=== PATIENT | male | born 1950 | race Caucasian/White ===

== ENCOUNTER 2017-04-07 02:19 | Inpatient (IN) | payer BC ==
[~2017-04-07] VITALS: Ht 175.3 cm; Wt 110.7 kg
[2017-04-07] VITALS (7 sets, daily range): BP systolic 96–126; BP diastolic 64–86; PULSE 88–123; TEMP 36.8–37.5; O2SAT 91–95; Ht 175.3 cm; Wt 110.7 kg
[~2017-04-07 02:19] MED LIST: AMOX500C3 PO; AMX500 PO; ASPEC325 PO; HYDR-713 PO; METH10TA6 PO; METO100T44 PO; MULT-506 PO
[2017-04-07] MEDS ORDERED: METOPROLOL TARTRATE 1 MG/ML VIAL IV STA (02:32)
[2017-04-07] MEDS ORDERED: ASPIRIN 324 MG CHEW PO STA (02:32)
[2017-04-07] MEDS ORDERED: METOPROLOL TARTRATE 1 MG/ML VIAL ONE (02:33)
[2017-04-07 02:44] LABS: BASO % 0.2 %; BASO ABS # 0.03 K/uL (0-0.2); EOS % 0.3 %; EOS ABS # 0.04 K/uL (0-0.5); HEMOGLOBIN 15.3 g/dL (14.0-18.0); IG# 0.05 K/uL (0.00-0.02); LYMPH % 9.4 %; LYMPH ABS # 1.34 K/uL (1.2-3.4); MEAN CELL VOLUME 87.8 fL (80-100); MEAN CORPUSCULAR HEMOGLOBIN 29.2 pg (25-34); MEAN CORPUSCULAR HGB CONC 33.3 g/dl (32-36); MEAN PLATELET VOLUME 11.1 fL (7.4-10.4); MONO % 8.8 %; MONO ABS # 1.26 K/uL (0.11-0.59); NEUT % 80.9 %; NEUT ABS # 11.52 K/uL (1.4-6.5); PLATELET COUNT 105 K/uL (130-400); RED CELL DISTRIBUTION WIDTH CV 12.6 % (11.5-14.5); RED CELL DISTRIBUTION WIDTH SD 40.3 fL (36.4-46.3); WHITE BLOOD COUNT 14.24 K/uL (4.8-10.8)
[2017-04-07 02:57] LABS: INR 1.1 (0.9-1.1); PTT PATIENT 28.5 SECONDS (21.0-31.0)
[2017-04-07 03:27] LABS: ALBUMIN 3.5 gm/dl (3.4-5.0); ALKALINE PHOSPHATASE 136 U/L (45-117); ALT/SGPT 25 U/L (12-78); AST/SGOT 17 U/L (15-37); BLOOD UREA NITROGEN 23 mg/dl (7-18); CALCIUM 8.7 mg/dl (8.5-10.1); CARBON DIOXIDE 24 mmol/L (21-32); CKMB < 0.5 ng/ml (0.5-3.6); CREATININE 1.14 mg/dl (0.60-1.40); GLUCOSE 127 mg/dl (70-99); POTASSIUM 4.6 mmol/L (3.5-5.1); SODIUM 135 mmol/L (136-145); TOTAL PROTEIN 7.9 gm/dl (6.4-8.2)
[2017-04-07] MEDS ORDERED: DILTIAZEM HCL 5 MG/ML 5 ML VIAL IV STA (03:39)
[2017-04-07] MEDS ORDERED: METO100T44 PO (04:01)
[2017-04-07] MEDS ORDERED: HYDR-4380 PO (04:06)
[2017-04-07] MEDS ORDERED: HEPARIN 25000 UNIT/500 ML D5W ONE (04:07)
[2017-04-07] MEDS ORDERED: HEPARIN SOD 5000 UNIT/0.5 ML CARP ONE (04:07)
--- NOTE | 2017-04-07 04:35 | History and Physical ---
History & Physical Date & Time of Service: Apr 07, 2017 at 04:19 Chief Complaint: Pain In Back Around Ribs,Having Trouble Breathing Primary Care Physician: Tom Reyes III, M.D. History of Present Illness Source: patient, family This is a 66 year old M with PMH of Atrial Fibrillation and Hyperthyroidism on methimazole who presents to the emergency room for abdominal pain and found to be in atrial fibrillation with RVR. In the ED, the initial EKG documenting heart rate of 161 bpm atrial fibrillation with RVR. Patient denies discomfort of the chest however also found to have elevated troponin of 0.147. In the ED patient received aspirin 325 mg, diltiazem 5 mg IV, and metoprolol tartrate IV. As per ED physician and patient's nurse, after these measures were taken, the blood pressure decreased (from systolic of 120s to systolic of low 100s). ED physician also ordered IV heparin to be started for anticoagulation. When see and examined by hospitalist, patient's heart rate around 115 to 120 beats per minute, still in atrial fibrillation with RVR, and blood pressure 103/ 84, saturating 94% on room air. Patient not in acute distress. Patient also had bilateral lower extremity edema for which patient reports is chronic and is not on diuretics. Patient reports that he has been having upper respiratory symptoms for about a week. He was seen at the primary care doctor's office on 04/06/17 for which he was prescribed augmentin for presumed sinusitis. Patient also reported subjective fevers at home Patient denies chest pain but has abdominal pain like muscle spasms Family History No pertinent family history Social History Smoking Status: Former Smoker Immunizations History of Influenza Vaccine: No History of Tetanus Vaccine?: Yes Tetanus Immunization Date: Jul 13, 2007 History of Pneumococcal: No History of Hepatitis B Vaccine: No Multi-Drug Resistant Organisms History of MDRO: No Allergies Coded Allergies: No Known Allergies (Verified , NKA, 04/07/17) Home Medications Scheduled Amoxicillin (Amoxil), 500 MG PO BID Methimazole (Methimazole), 10 MG PO DAILY Metoprolol Succ (Toprol Xl) (Toprol-Xl ), 100 MG PO DAILY Scheduled PRN Hydrocodone-Acetaminophen (Hydrocodone/Acetaminophen), 1 TAB PO UD PRN for Pain Review of Systems Constitutional: + fever Eyes: No discharge ENT: + nasal symptoms, No hearing loss, No unusual epistaxis, No sore throat, No trouble swallowing Respiratory: No cough, No sputum, No wheezing, No shortness of breath, No dyspnea on exertion, No dyspnea at rest Cardiovascular: + edema, + palpitations, No chest pain Abdomen: + pain, No nausea, No vomiting, No diarrhea, No constipation Musculoskeletal: + swelling Genitourinary - Male: No dysuria Neurologic: No numbness/tingling Psychiatric: No substance abuse Hematologic / Lymphatic: No abnormal bleeding/bruising Integumentary: No rash Physical Exam Vital Signs Date Time Temp Pulse Resp B/P (MAP) Pulse Ox O2 Delivery O2 Flow Rate FiO2 04/07/17 03:36 135 27 106/80 94 Room Air 04/07/17 03:31 122 26 96/54 92 Room Air 04/07/17 03:26 128 26 95/73 90 Room Air 04/07/17 03:21 122 28 100/73 94 Room Air 04/07/17 03:16 134 23 102/78 92 Room Air 04/07/17 03:14 129 23 109/76 92 Room Air 04/07/17 03:11 130 39 108/72 92 Room Air 04/07/17 03:06 133 27 103/71 94 Room Air 04/07/17 03:03 133 27 102/63 94 Room Air 04/07/17 02:59 117 28 97/77 92 Room Air 04/07/17 02:57 101/57 04/07/17 02:57 Room Air 04/07/17 02:55 107 32 97/72 93 Room Air 04/07/17 02:53 99/76 04/07/17 02:52 129 27 102/74 93 Room Air 04/07/17 02:48 103/71 04/07/17 02:46 104/68 04/07/17 02:43 139 98/78 93 Room Air 04/07/17 02:41 106/79 04/07/17 02:40 125/72 04/07/17 02:37 138 106/83 04/07/17 02:35 113/83 04/07/17 02:33 149 114/86 95 Room Air 04/07/17 02:32 130 04/07/17 02:30 169 04/07/17 02:27 94 Room Air 04/07/17 02:22 36.7 173 24 124/76 95 Room Air General Appearance: no apparent distress Head: normocephalic, atraumatic Eyes: normal inspection, EOMI, sclerae normal ENT: normal ENT inspection, hearing grossly normal, pharynx normal Neck: supple, no JVD, no carotid bruits, trachea midline Respiratory/Chest: chest non-tender, lungs clear, normal breath sounds, no respiratory distress, no accessory muscle use Cardiovascular: no JVD, + tachycardia Abdomen/GI: normal bowel sounds, non tender, soft, no organomegaly Back: normal inspection, normal range of motion Extremities/Musculoskelatal: normal capillary refill, + pedal edema, + pertinent finding (bilateral lower extremity edema) Neurologic/Psych: alert, oriented x 3 Skin: normal color, warm/dry, no rash Diagnostics Laboratory Results Results Past 24 Hours Test 04/07/17 02:32 04/07/17 04:17 Range/Units White Blood Count 14.24 4.8-10.8 K/uL Red Blood Count 5.24 4.7-6.1 M/uL Hemoglobin 15.3 14.0-18.0 g/dL Hematocrit 46.0 42-52 % Mean Corpuscular Volume 87.8 80-100 fL Mean Corpuscular Hemoglobin 29.2 25-34 pg Mean Corpuscular Hemoglobin Concent 33.3 32-36 g/dl Platelet Count 105 130-400 K/uL Mean Platelet Volume 11.1 7.4-10.4 fL Neutrophils (%) (Auto) 80.9 % Lymphocytes (%) (Auto) 9.4 % Monocytes (%) (Auto) 8.8 % Eosinophils (%) (Auto) 0.3 % Basophils (%) (Auto) 0.2 % Neutrophils # (Auto) 11.52 1.4-6.5 K/uL Lymphocytes # (Auto) 1.34 1.2-3.4 K/uL Monocytes # (Auto) 1.26 0.11-0.59 K/uL Eosinophils # (Auto) 0.04 0-0.5 K/uL Basophils # (Auto) 0.03 0-0.2 K/uL RDW Standard Deviation 40.3 36.4-46.3 fL RDW Coefficient of Variation 12.6 11.5-14.5 % Immature Granulocyte % (Auto) 0.4 % Immature Granulocyte # (Auto) 0.05 0.00-0.02 K/uL Prothrombin Time 11.4 9.0-12.0 SECONDS Prothromb Time International Ratio 1.1 0.9-1.1 Activated Partial Thromboplast Time 28.5 21.0-31.0 SECONDS Partial Thromboplastin Ratio 1.1 Sodium Level 135 136-145 mmol/L Potassium Level 4.6 3.5-5.1 mmol/L Chloride Level 104 98-107 mmol/L Carbon Dioxide Level 24 21-32 mmol/L Anion Gap 7.0 3-11 mmol/L Blood Urea Nitrogen 23 7-18 mg/dl Creatinine 1.14 0.60-1.40 mg/dl Est Creatinine Clear Calc Drug Dose 80.3 ml/min Estimated GFR () 78.3 Estimated GFR (Non- 67.6 BUN/Creatinine Ratio 19.9 10-20 Random Glucose 127 70-99 mg/dl Calcium Level 8.7 8.5-10.1 mg/dl Total Bilirubin 1.1 0.2-1 mg/dl Aspartate Amino Transf (AST/SGOT) 17 15-37 U/L Alanine Aminotransferase (ALT/SGPT) 25 12-78 U/L Alkaline Phosphatase 136 45-117 U/L Total Creatine Kinase 58 39-308 U/L Creatine Kinase MB < 0.5 0.5-3.6 ng/ml Creatine Kinase MB Ratio 0-3.0 Troponin I 0.147 0-0.045 ng/ml Pro-B-Type Natriuretic Peptide 3274 0-900 pg/ml Total Protein 7.9 6.4-8.2 gm/dl Albumin 3.5 3.4-5.0 gm/dl Globulin 4.4 2.5-4.0 gm/dl Albumin/Globulin Ratio 0.8 0.9-2 Chemistry Specimen Hemolysis Diagnostic Radiology Chest X ray reviewed. No gross consolidation EKG EKG on ED presentation was 161 bpm in atrial fibrillation RVR Impression Assessment and Plan 66 year old M in atrial fibrillation with RVR which could have been provoked by upper respiratory symptoms atrial fibrillation with RVR heart rate has decreased from 160s to 120s after ED provider gave patient IV diltiazem and IV Metoprolol Tartrate ordered metoprolol 25 mg x 1 dose to try and obtain long acting effect of beta titus at home patient has been on metoprolol succinate 100 mg daily, will hold this high dose for now to minimize hypotension patient is at home on aspirin 325 mg daily as per outpatient records, received this dose already in the ED, continue aspirin ED provider ordered IV heparin cardiology consult requested URI symptoms, possible sinusitis may have triggered afib with RVR continue augmentin PO elevated troponins may be from elevated heart rate vs NSTEMI initial troponin 0.147, trend troponins EKG did not show ST elevations abdominal pain may be referred discomfort from elevated heart rate vs NSTEMI ED provider ordered IV heparin chronic lower extremity edema not on diuresis at home obtain echocardiogram lower extremity Doppler to rule out DVT no tachypnea on exam and despite tachycardia, patient unlikely to have pulmonary embolism is to receive IV heparin for anticoagulation of atrial fibrillation Hypothyroidism continue methimazole check TSH DVT ppx: heparin IV Full Code Patient's [phone] Level of Care Telemetry Resuscitation Status FULL RESUSCITATION VTE Prophylaxis VTE Risk Assessment Done? Y/N: Yes Risk Level: Moderate
[2017-04-07] MEDS ORDERED: METOPROLOL SUCC 50MG EXT REL TAB PO STA ×2 (04:41→10:57)
[2017-04-07] MEDS ORDERED: INFLUENZA VIRUS QUAD VACCINE 0.5 ML SYR IM. ONE (06:00)
[2017-04-07] MEDS ORDERED: INFLUENZA ADMINISTRATION CHARGE ONE (06:00)
--- NOTE | 2017-04-07 07:41 | DIAGNOSTIC IMAGING REPORT ---
CHEST ONE VIEW PORTABLE HISTORY: Atypical chest pain. COMPARISON: Chest 10/13/2008. FINDINGS: There are low lung volumes. The heart is mildly enlarged. Trace left pleural effusion. No evidence for pulmonary edema. Old, healed bilateral rib fractures. No pneumothorax. Bibasilar linear densities. The upper lung zones are clear. IMPRESSION: 1. Trace left pleural effusion. 2. Mild cardiomegaly. 3. Bibasilar linear densities. This is nonspecific but may represent atelectasis or pneumonia. Electronically signed by: Lion Jackson M.D. 04/07/2017 7:40 AM Dictated Date/Time: 04/07/2017 7:39 AM
[2017-04-07] MEDS ORDERED: PERFLUTREN LIPID MICROSPHERE (DEFINITY) IV ONE (08:03)
[2017-04-07] MEDS ORDERED: METHIMAZOLE 5 MG TAB PO SCH ×2 (09:00)
[2017-04-07] MEDS ORDERED: AMOXICILLIN 500 MG CAP PO SCH (09:00)
--- NOTE | 2017-04-07 09:00 | DIAGNOSTIC IMAGING REPORT ---
BILATERAL LOWER EXTREMITY VENOUS DOPPLER HISTORY: Difficulty breathing. Leg pain. COMPARISON STUDY: None. FINDINGS: Near occlusive DVT seen within the right superficial femoral, popliteal, and posterior tibial veins. There is also a thrombosed right greater saphenous vein. There is normal compressibility, flow, and augmentation within the left lower extremity deep venous system. IMPRESSION: 1. Right lower extremity DVT as described above including a thrombosed greater saphenous vein. 2. No DVT within the left lower extremity. Electronically signed by: Lion Jackson M.D. 04/07/2017 8:59 AM Dictated Date/Time: 04/07/2017 8:53 AM
[2017-04-07] MEDS: METOPROLOL TARTRATE 1 MG/ML VIAL IV PRN ×2 (09:10→10:20)
--- NOTE | 2017-04-07 09:23 | EMERGENCY ROOM VISIT NOTE ---
History Report prepared by Javed: Lilian Sheffield Under the Supervision of: Dr. Adeola Prater D.O. First contact with patient: 02:27 Chief Complaint: CHEST PAIN Stated Complaint: PAIN IN BACK AROUND RIBS,HAVING TROUBLE BREATHING History of Present Illness The patient is a 66 year old male who presents to the Emergency Room with complaints of worsening chest pain starting a few days ago. The patient states that he thought when it originally started, it was from coughing so much from the cold he has. He states that it got worse yesterday and this morning he could no longer take it. He states that he has not been sleeping well. He reports that he has had this feeling before when he was in atrial fibrillation. The patient notes he recently has been taking 2 Aspirin daily. The patient denies abdominal pain. The patient notes that he is currently taking Amoxicillin for a sinus infection that was prescribed by his PCP yesterday. Source of History: patient Onset: a few days ago Position: chest Quality: other (previosu a fib episodes) Timing: worsening Associated Symptoms: + cough, No abdominal pain Review of Systems See HPI for pertinent positives & negatives. A total of 10 systems reviewed and were otherwise negative. Past Medical & Surgical Medical Problems: (1) Atrial fibrillation with RVR (2) Elevated troponin (3) Paroxysmal atrial fibrillation Family History No pertinent family history Social History Alcohol Use: none Marital Status: Housing Status: lives with significant other Current/Historical Medications Scheduled Amoxicillin (Amoxil), 500 MG PO BID Methimazole (Methimazole), 10 MG PO DAILY Metoprolol Succ (Toprol Xl) (Toprol-Xl ), 100 MG PO DAILY Scheduled PRN Hydrocodone-Acetaminophen (Hydrocodone/Acetaminophen), 1 TAB PO UD PRN for Pain Allergies Coded Allergies: No Known Allergies (Verified , NKA, 04/07/17) Physical Exam Vital Signs Date Time Temp Pulse Resp B/P (MAP) Pulse Ox O2 Delivery O2 Flow Rate FiO2 04/07/17 04:11 129 28 100/75 94 04/07/17 04:07 102/68 04/07/17 04:06 116 30 94 04/07/17 04:01 121 29 101/80 94 04/07/17 03:56 118 26 127/76 93 04/07/17 03:51 112 23 103/84 94 04/07/17 03:46 127 24 107/78 94 04/07/17 03:41 127 26 105/75 93 04/07/17 03:36 135 27 106/80 94 Room Air 04/07/17 03:36 133 31 106/80 94 04/07/17 03:31 122 26 96/54 92 Room Air 04/07/17 03:26 128 26 95/73 90 Room Air 04/07/17 03:21 122 28 100/73 94 Room Air 04/07/17 03:16 134 23 102/78 92 Room Air 04/07/17 03:14 129 23 109/76 92 Room Air 04/07/17 03:11 130 39 108/72 92 Room Air 04/07/17 03:06 133 27 103/71 94 Room Air 04/07/17 03:03 133 27 102/63 94 Room Air 04/07/17 02:59 117 28 97/77 92 Room Air 04/07/17 02:57 101/57 04/07/17 02:57 Room Air 04/07/17 02:55 107 32 97/72 93 Room Air 04/07/17 02:53 99/76 04/07/17 02:52 129 27 102/74 93 Room Air 04/07/17 02:48 103/71 04/07/17 02:46 104/68 04/07/17 02:43 139 98/78 93 Room Air 04/07/17 02:41 106/79 04/07/17 02:40 125/72 04/07/17 02:37 138 106/83 04/07/17 02:35 113/83 04/07/17 02:33 149 114/86 95 Room Air 04/07/17 02:32 130 04/07/17 02:30 169 04/07/17 02:27 94 Room Air 04/07/17 02:22 36.7 173 24 124/76 95 Room Air Physical Exam HEENT: Head - normocephalic and atraumatic Pupils are equal, round, and reactive to light. Extraocular eye muscles are intact, and sclera are anicteric. Nose - moist nasal mucosa without discharge. Mouth - moist buccal mucosa. Oropharynx is nonerythematous and there is no tonsillar exudate or edema noted. Neck: Supple; no JVD, nuchal rigidity, cervical lymphadenopathy, or auscultated bruits. Heart: Irregularly irregular. Tachycardia. There is a normal S1 and S2 with no murmurs, clicks, or gallops appreciated. Lungs: Clear to auscultation bilaterally with no wheezes, rales, or rhonchi. Abdomen: Soft, completely nontender, nondistended, with good bowel sounds. There are no palpable pulsatile masses or hepatosplenomegaly. There is no guarding, rigidity, or rebound noted. Extremities: No evidence of cyanosis, clubbing, or edema. There are easily palpable peripheral pulses. Skin: warm with good turgor and no rashes. Diaphoretic. Medical Decision & Procedures ER Provider Diagnostic Interpretation: CHEST X-RAY: The results were interpreted by me. Moderate pulmonary vascular congestion. Cardiomegaly. Laboratory Results 04/07/17 02:32 Red Blood Count 5.24, Mean Corpuscular Volume 87.8, Mean Corpuscular Hemoglobin 29.2, Mean Corpuscular Hemoglobin Concent 33.3, Mean Platelet Volume 11.1, Neutrophils (%) (Auto) 80.9, Lymphocytes (%) (Auto) 9.4, Monocytes (%) (Auto) 8.8, Eosinophils (%) (Auto) 0.3, Basophils (%) (Auto) 0.2, Neutrophils # (Auto) 11.52, Lymphocytes # (Auto) 1.34, Monocytes # (Auto) 1.26, Eosinophils # (Auto) 0.04, Basophils # (Auto) 0.03 Test 04/07/17 02:32 White Blood Count 14.24 K/uL (4.8-10.8) Red Blood Count 5.24 M/uL (4.7-6.1) Hemoglobin 15.3 g/dL (14.0-18.0) Hematocrit 46.0 % (42-52) Mean Corpuscular Volume 87.8 fL (80-100) Mean Corpuscular Hemoglobin 29.2 pg (25-34) Mean Corpuscular Hemoglobin Concent 33.3 g/dl (32-36) Platelet Count 105 K/uL (130-400) Mean Platelet Volume 11.1 fL (7.4-10.4) Neutrophils (%) (Auto) 80.9 % Lymphocytes (%) (Auto) 9.4 % Monocytes (%) (Auto) 8.8 % Eosinophils (%) (Auto) 0.3 % Basophils (%) (Auto) 0.2 % Neutrophils # (Auto) 11.52 K/uL (1.4-6.5) Lymphocytes # (Auto) 1.34 K/uL (1.2-3.4) Monocytes # (Auto) 1.26 K/uL (0.11-0.59) Eosinophils # (Auto) 0.04 K/uL (0-0.5) Basophils # (Auto) 0.03 K/uL (0-0.2) RDW Standard Deviation 40.3 fL (36.4-46.3) RDW Coefficient of Variation 12.6 % (11.5-14.5) Immature Granulocyte % (Auto) 0.4 % Immature Granulocyte # (Auto) 0.05 K/uL (0.00-0.02) Prothrombin Time 11.4 SECONDS (9.0-12.0) Prothromb Time International Ratio 1.1 (0.9-1.1) Est Creatinine Clear Calc Drug Dose 80.3 ml/min Total Creatine Kinase 58 U/L (39-308) Creatine Kinase MB < 0.5 ng/ml (0.5-3.6) Creatine Kinase MB Ratio (0-3.0) Pro-B-Type Natriuretic Peptide 3274 pg/ml (0-900) Thyroid Stimulating Hormone (TSH) < 0.005 uIu/ml (0.300-4.500) Chemistry Specimen Hemolysis Laboratory results per my review. Medications Administered Medications (Trade) Dose Ordered Sig/[place] Route Start Time Stop Time Status Last Admin Dose Admin Metoprolol Tartrate (Lopressor Iv) 15 mg NOW STAT IV 04/07/17 02:32 04/07/17 02:33 DC 04/07/17 02:32 15 MG Aspirin (Aspirin Chew) 324 mg NOW STAT PO 04/07/17 02:32 04/07/17 02:35 DC 04/07/17 02:32 324 MG Diltiazem HCl (Cardizem Inj) 5 mg NOW STAT IV 04/07/17 03:39 04/07/17 03:40 DC 04/07/17 03:44 5 MG Heparin Sodium/ Dextrose (Heparin 25,000 Unit/500ml D5W) 25,000 unit STK-MED ONCE .ROUTE 04/07/17 04:07 04/07/17 04:08 DC 04/07/17 04:12 25,000 UNIT Heparin Sodium (Porcine) (Heparin Sq 5000 Unit/0.5ml) 10,000 unit STK-MED ONCE .ROUTE 04/07/17 04:07 04/07/17 04:08 DC 04/07/17 04:09 7,000 UNIT Procedure 0232: Ordered Aspirin 324 mg PO, Lopressor Iv 15 mg IV. 0339: Ordered Cardizem Inj 5 mg IV. 0341: Ordered Heparin Sodium/Dextrose 1 ea N/A. ECG Indication: chest pain Rate (beats per minute): 161 Rhythm: atrial fibrillation Findings: no acute ischemic change, other (RVR) ED Course 0229: Past medical records reviewed. The patient was evaluated in room A10. A complete history and physical exam was performed. An IV lock was initiated and labs were drawn as above. The patient was observed on the monitoring analyst and pulse oximeter. 0232: Ordered Aspirin 324 mg PO, Lopressor 8 mg IV. Patient had chest x-ray as described above. 0313: I reevaluated the patient and his heart rate is in the 120s, but his blood pressure is 102 systolically. His chest pain is gone. He is still having some abdominal discomfort like a muscle strain on the left side. 0338: I reevaluated the patient and his heart rate is back in the 140s. He is going to get a dose of Cardizem. 0339: Ordered Cardizem Inj 5 mg IV. 0341: Ordered Heparin Sodium/Dextrose 1 ea N/A. 0342: Discussed the patient's case with Dr. Paul - Hospitalist. The patient will be evaluated for further management. 0400: I reevaluated the patient and Cardizem bought his heart rate down to 114. His blood pressure is stable. Medical Decision The patient is a 66 year old male who presents to the Emergency Room with complaints of worsening chest pain starting a few days ago. Differential diagnoses include SVT, a fib with RVR, cardiac ischemia, pneumonia , bronchitis. LABS: White count 14.2 Stable H&H BUN 23 Creatine 1.1 Glucose 127 Total bilirubin 1.1 Troponin 0.147 BNP 3274 Normal coags The patient is a history of A. fib. He presents to the emergency department with palpitations and chest discomfort. He is currently in atrial fibrillation with a rapid ventricular response. His rate came down with Lopressor and Cardizem. However, the patient has evidence of pulmonary vascular congestion on chest x-ray with an elevated BNP. He also has an elevated troponin. I discussed the case with the hospitalist and they will evaluate for further management. The patient remained hemodynamically stable and chest pain-free Medication Reconcilliation Current Medication List: was personally reviewed by me Blood Pressure Screening Patient's blood pressure: Normal blood pressure Blood pressure disposition: Did not require urgent referral Consults Time Called: [phone] Consulting Physician: Dr. Humberto Eduardo Returned Call: [phone] Discussed the patient's case with Dr. Humberto Eduardo. The patient will be evaluated for further management. Impression Primary Impression: Atrial fibrillation with RVR Additional Impression: Non-STEMI (non-ST elevated myocardial infarction) Scribe Attestation The scribe's documentation has been prepared under my direction and personally reviewed by me in its entirety. I confirm that the note above accurately reflects all work, treatment, procedures, and medical decision making performed by me. Departure Information Dispostion Being Evaluated By Hospitalist Referrals Tom Reyes III, M.D. (PCP) Patient Instructions My [facility] Problem Qualifiers
[2017-04-07 10:10] LABS: INFLUENZA B ANTIGEN Neg for Influ B (NEG)
--- NOTE | 2017-04-07 10:31 | ECHOCARDIOGRAM REPORT ---
*NOTICE TO RECEIVING CONSTITUTION PARTY AGENCY This information is strictly Confidential and protected under [place] law. [place] law prohibits you from making any further disclosure of this information unless further disclosure is expressly permitted by the written consent of the person to whom it pertains or is authorized by law. A general authorization for the release of medical or other information is not sufficient for this purpose. Hospital accepts no responsibility if the information is made available to any other person, INCLUDING THE PATIENT. Interpretation Summary * Name: CLAUDY LANGFORD Study Date: 04/07/2017 06:51 AM BP: 126/86 mmHg * Patient Location: [facility] HR: 111 * : 1950 (M/d/yyyy) Gender: Male Height: 69 in * Age: 66 yrs Ethnicity: [place] Weight: 244 lb * Ordering Physician: Parveen Paul * Referring Physician: Self, Referred * Performed By: Iris Dumont RDCS * * Reason For Study: A-fib * BSA: 2.2 m2 * -- Conclusions -- * Atrial fibrillation with rapid ventricular response * The study was technically limited. * The left ventricle is normal in size. * There is borderline concentric left ventricular hypertrophy. * No regional wall motion abnormalities noted. * Ejection Fraction = 50-55%. * The aortic valve is not well visualized. * The aortic valvel leaflets are moderately calcified and is likely bicuspid. * At least moderate aortic stenosis is suspected, possibley severe. Procedure Details * A complete two-dimensional transthoracic echocardiogram was performed (2D, M-mode, Doppler and color flow Doppler). * A contrast injection of Definity was performed to improve assessment of LV function. * Contrast was injected into an intravenous site in the left arm. * One vial of Definity ultrasound contrast was diluted in normal saline to a total volume of 10 ml. A total of '1' ml of solution was administered during imaging. * Lot # [id number] of Definity utilized for procedure. * Expiration date 1 MAY 17. * The attending nurse who injected the contrast agent was Jasmin Mills RN. * The study was technically limited. Left Ventricle * The left ventricle is normal in size. * There is borderline concentric left ventricular hypertrophy. * Ejection Fraction = 50-55%. * No regional wall motion abnormalities noted. Right Ventricle * The right ventricle is borderline dilated. Mitral Valve * The mitral valve is grossly normal. * There is no mitral valve stenosis. * Significant mitral regurgitation is absent. Tricuspid Valve * The tricuspid valve is not well visualized. Aortic Valve * The aortic valve is not well visualized. * The aortic valvel leaflets are moderately calcified and is likely bicuspid. At least moderate aortic stenosis is suspected, possibley severe. * There is no significant aortic regurgitation. Pulmonic Valve * The pulmonic valve is not well visualized. Great Vessels * The aortic root is normal size. Pericardium/Pleural * There is no pericardial effusion. Great Vessels * Normal inferior vena cava diameter and respiratory variation suggests normal central venous pressure. MMode 2D Measurements and Calculations IVSd 0.64 cm LVIDd 5.5 cm LVIDs 3.8 cm LVPWd 0.93 cm IVS/LVPW 0.69 FS 30.6 % EDV(Teich) 145.6 ml ESV(Teich) 61.7 ml EF(Teich) 57.6 % EDV(cubed) 163.7 ml ESV(cubed) 54.6 ml EF(cubed) 66.6 % LV mass(C)d 154.0 grams LV mass(C)dI 68.5 grams/m\S\2 SV(Teich) 83.9 ml SI(Teich) 37.3 ml/m\S\2 SV(cubed) 109.1 ml SI(cubed) 48.5 ml/m\S\2 Ao root diam 2.8 cm Ao root area 6.3 cm\S\2 ACS 1.4 cm asc Aorta Diam 4.3 cm LVAd ap4 26.0 cm\S\2 LVLd ap4 6.9 cm EDV(MOD-sp4) 77.4 ml EDV(sp4-el) 82.9 ml LVAs ap4 15.2 cm\S\2 LVLs ap4 5.9 cm ESV(MOD-sp4) 31.7 ml ESV(sp4-el) 33.6 ml EF(MOD-sp4) 59.1 % EF(sp4-el) 59.5 % LVAd ap2 27.0 cm\S\2 LVLd ap2 7.8 cm EDV(MOD-sp2) 76.5 ml EDV(sp2-el) 79.7 ml LVAs ap2 16.3 cm\S\2 LVLs ap2 7.0 cm ESV(MOD-sp2) 30.5 ml ESV(sp2-el) 32.2 ml EF(MOD-sp2) 60.1 % EF(sp2-el) 59.6 % LVLd %diff 11.0 % EDV(MOD-bp) 78.8 ml LVLs %diff 16.0 % ESV(MOD-bp) 34.0 ml EF(MOD-bp) 56.8 % SV(MOD-sp4) 45.7 ml SI(MOD-sp4) 20.3 ml/m\S\2 SV(MOD-sp2) 46.0 ml SI(MOD-sp2) 20.5 ml/m\S\2 SV(MOD-bp) 44.8 ml SI(MOD-bp) 19.9 ml/m\S\2 SV(sp4-el) 49.4 ml SI(sp4-el) 22.0 ml/m\S\2 SV(sp2-el) 47.5 ml SI(sp2-el) 21.1 ml/m\S\2 Doppler Measurements and Calculations MV E max rajinder 92.9 cm/sec MV dec time 0.18 sec Ao V2 max 268.4 cm/sec Ao max PG 28.8 mmHg Ao max PG (full) 26.8 mmHg Ao V2 mean 191.9 cm/sec Ao mean PG 16.6 mmHg Ao V2 VTI 40.9 cm LV V1 max PG 2.0 mmHg LV V1 max 70.6 cm/sec SV(Ao) 256.3 ml SI(Ao) 114.0 ml/m\S\2 TR max rajinder 174.2 cm/sec
[2017-04-07 10:50] LABS: CALCIUM 8.4 mg/dl (8.5-10.1); CREATININE 0.9 mg/dl (0.60-1.40); POTASSIUM 4.8 mmol/L (3.5-5.1)
[2017-04-07 10:54] LABS: PTT PATIENT 46.4 SECONDS (21.0-31.0)
[2017-04-07 10:57] LABS: TOTAL PROTEIN 7.1 gm/dl (6.4-8.2)
[2017-04-07] MEDS ORDERED: HEPARIN IV BOLUS 3,000 UNIT in SYRINGE 0 ML IV ONE ×2 (11:15→18:45)
[2017-04-07] MEDS: HEPARIN 25,000 UNIT/500ML D5W 500 ML IV PRN ×2 (11:33→19:38)
--- NOTE | 2017-04-07 11:38 | CARDIOLOGY CONSULTATION ---
DATE OF CONSULTATION: 04/07/2017 DATE OF CONSULTATION: 04/07/2017 PRIMARY CARE PHYSICIAN: Dr. Reyes. REFERRING: Dr. Mckeon. INDICATIONS: Atrial fibrillation with rapid ventricular response. HISTORY OF PRESENT ILLNESS: The patient is a 66-year-old male whose past history is notable for hypertension, hyperthyroidism on suppressive therapy, past history of paroxysmal atrial fibrillation with last episode occurring in 2008 in association with hyperthyroidism/thyrotoxicosis. The patient underwent successful synchronized electrical cardioversion at that time. The patient presents this admission noting having felt ill for approximately 1 week's time, was seen in the outpatient setting for cough and upper respiratory infection, bronchitis and was begun on antibiotic therapy but had not specifically initiated it other than a single dose. Cough was severe enough to limit him from sleeping. Notes became progressively more dyspneic and painful due to progressive cough with pain across flank and ribcage. Feels his heart may have been racing for 1-2 days or greater. Notes associated fevers and chills. Notes no melena, hematochezia, dysuria or hematuria. Has been taking other medications per patient as prescribed. Appetite and weight have been stable. Notes no bleeding difficulties. Notes no rash or arthritic complaint. Notes no syncope or near syncope. He is nondiabetic. Notes no prior history of TIA or stroke. REVIEW OF SYSTEMS: As per HPI and otherwise negative. ALLERGIES: None. MEDICATIONS PRIOR TO HOSPITALIZATION: Methimazole 10 mg p.o. daily, Toprol-XL 100 mg p.o. day, and recent initiation of amoxicillin x1 dose of 500 mg twice per day. PAST SURGICAL HISTORY: None. FAMILY HISTORY: Notable for irregular heart rhythms in multiple family members. 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 He is modestly active about his home. He is a nonsmoker. Nondrinker. Uses occasional Tums as an [id number] medication but no other significant supplements. PHYSICAL EXAMINATION: VITAL SIGNS: Heart rate is 120, blood pressure is 120/86. HEAD, EYES, EARS, NOSE, AND THROAT: Normocephalic, atraumatic. Nares without discharge. Throat was clear. NECK: Supple without thyromegaly, lymphadenopathy. There is vigorous carotid upstroke as well as pulsatile jugular venous pressure. LUNGS: Reveal scattered wheezes and rhonchi with forced cough. CARDIOVASCULAR: Irregular, irregular with a grade 1-2/6 systolic murmur heard best at the apex and right upper sternal border. There is no diastolic murmur. ABDOMEN: Soft, nontender. No palpable hepatosplenomegaly. There is no hepatojugular reflux. EXTREMITIES: Without cyanosis or clubbing. There is no peripheral edema. There are intact distal pulses. NEUROLOGIC: The patient is answering questions appropriately. On palpation chest and abdomen there is marked tenderness to the chest wall and upper abdominal musculature, worse with coughing and deep inspiration. DATA: EKG on presentation revealed atrial fibrillation with rapid ventricular response, rate 160. Telemetry continues to demonstrate elevated ventricular response rates though better controlled when sitting quietly. LABORATORY STUDIES: White cell count is 14.2, hemoglobin is 15.3, platelet count is 105,000. There is a left shift with elevated neutrophils. Sodium is 138, potassium is 4.8, chloride is 104, bicarb is 26, BUN is 25, creatinine 0.9, glucose is 112. Troponin I's are mildly elevated but flat at 0.14, 0.11. Albumin level is 3.0. TSH is nondetectable with an elevated free T4 2.46. Echocardiogram today demonstrates very technically limited study with the patient in atrial fibrillation and rapid ventricular response, borderline concentric left ventricular hypertrophy. No regional wall motion abnormalities observed with an ejection fraction of 50-55%, aortic valve was not well visualized but appears calcified and likely bicuspid. There is at least moderate aortic stenosis suspected, possibly severe. There is no other valvular diseases discerned. Chest x-ray reveals borderline increase in vasculature by my assessment. There is a streaky infiltrate left base greater than right with possible nontrivial effusion. IMPRESSION: A 66-year-old male presents now with underlying history of hyperthyroidism, past history of paroxysmal atrial fibrillation who presented after initiating difficulties with upper respiratory infection, cough with cough becoming unreliable to the point of causing severe chest pain and abdominal pain with inspiration and movement. He received a single dose of oral antibiotics before presenting. He noted tachypalpitations of at least 1-2 days in duration. He was found to be in atrial fibrillation with rapid ventricular response. Issues are as follows: 1. Afib with rapid ventricular response. He received IV metoprolol for control. Will increase patient's baseline Toprol-XL to 50 mg t.i.d. Continue anticoagulation with heparin. Will follow blood pressure and heart rate as clinical course progresses. As noted the patient is significantly hyperthyroid. Addressing this issue will help as well as control pain and discomfort with marked tenderness to the chest wall on palpation. The patient will likely require long-term anticoagulation if rate does not come under prompt control, may consider KRYS guided cardioversion. 2. Calcified aortic valve bicuspid with possibly severe aortic stenosis, not well discerned by current echocardiogram. Will consider repeating a transthoracic echo once heart rate is better controlled versus transesophageal echo depending on clinical course. 3. Upper respiratory infection with elevated white cell count and cough. Controlling pain and cough will be helpful in management of patient's issues. 4. Hyperthyroidism. I agree with plans for increasing suppression. We will follow patient in the hospital.
[2017-04-07] MEDS ORDERED: MoRPHine SULFATE 2 MG/ML CARP IV PRN (12:15)
[2017-04-07] MEDS ORDERED: OPTIRAY 320 IV PRN (12:45)
[2017-04-07] MEDS ORDERED: OXYCODONE/ACETAMINOPHEN 5-325 TAB PO PRN ×2 (13:00)
[2017-04-07] MEDS ORDERED: DOCUSATE SODIUM 100 MG CAP PO PRN (13:00)
[2017-04-07] MEDS ORDERED: SODIUM CHLORIDE 0.9% 1000ML 1,000 ML IV SCH (13:00)
--- NOTE | 2017-04-07 13:12 | Progress Note ---
Internal Med Progress Note Date of Service: Apr 07, 2017. Provider Documentation: SUBJECTIVE: remains in rapid afib RVR , HR in 130-140's offers no complain of dizzy spell or palpitation complains of severe pain on left upper chest wall , just below the L nipple area very tender to touch unable to take deep breath due to pain thinks he might have pulled a muscle , had constant cough for past few days , unable to sleep no cough since admission ,afebrile OBJECTIVE: Vital Signs-as noted below Exam: General-sitting up on chair , in distress for left sided chest wall pain Eyes-Sclera non icteric, PERRLA/EOMI ENT-moist oral mucosa Neck-no thyromegaly , trachea midline Lungs-diminished ,no wheeze or rales, pleuritic chest pain Heart-irregular , rapid Abdomen-soft, non tender Extremities-+ tenderness on left chest wall , no rash noted Neuro-AAO x3, focal neurological deficit Lab data as noted below. ASSESSMENT & PLAN: AFIB RVR presented with rapid Afib RVR HR in 170's given IV Cardizem, IV Lopressor in ER HR improved to 115 remains in Afib started on IV Heparin appreciate input form Cardiology -Lopressor dose increased to 50 mg Q 8hrs ( was on 100 mg daily ) ECHO shows : moderated to severe Aortic stenosis, bicuspid aortic valve cont tele monitoring Per Cardiology : if pt remains in persisted afib RVR -plan for KRYS cardioversion after being on therapeutic anticoagulation for 48 hrs RT LOWER EXTREMITY DVT Lower ext Doppler shows occlusive DVT on rt lower extremity ordered for CT Chest to assess for PE LEFT SIDED CHEST WALL PAIN : complains of sharp pain on left chest wall , reproducible , very tender to touch worse with taking deep breath ordered for IV morphine PRN CT Chest with contrast to R/O PE HYPERTHYROIDISM : has not taken methimazole for past few weeks ( pt says he ran out of them ) presents with rapid Afib rvr TSH < 0.0005 with elevated Free T3 /t4 level was prescribed to take Tapazole 7.5 mg daily , pt is unsure of the dose , mentions he was possibly taking 10 mg daily till he ran out of the med increased Tapazole dose to 20 mg daily Called [facility] discussed the case recommends to continue Tapazole 20 mg daily Beta titus for rapid afib it will take few weeks before Free T4 level normalizes out pt TSH /Free T4 check in 3 -4 weeks to monitor response and adjusting meds DRY NON PRODUCTIVE COUGH /URI : Cxray shows no infiltrate afebrile has mild leukocytosis WBC 14 K recently prescribed Augmentin as out pt started on Amoxicillin on admission no cough noted since admission DVT PROPHYLAXIS IV heparin FULL CODE DISPOSITION expected to be discharged home when medically stable medicine follow up with Dr Reyes will benefit with referral to Endocrine clinic for management of hyperthyroidism need to establish with Coagulation clinic at [facility] for chronic anticoagulation pt will need close follow up with Cardiology for Afib RVR Vital Signs: Date Time Temp Pulse Resp B/P (MAP) Pulse Ox O2 Delivery O2 Flow Rate FiO2 04/07/17 12:00 95 Room Air 04/07/17 11:15 37.5 114 18 106/77 (87) 92 Room Air 04/07/17 10:20 108 04/07/17 09:10 156 120/86 04/07/17 08:00 95 Room Air 04/07/17 07:35 36.8 111 18 126/86 (99) 95 Room Air 04/07/17 04:40 36.8 123 18 96/64 94 Room Air 04/07/17 04:29 115 29 104/77 95 04/07/17 04:21 115 29 104/77 95 04/07/17 04:16 129 25 107/83 95 04/07/17 04:11 129 28 100/75 94 04/07/17 04:07 102/68 04/07/17 04:06 116 30 94 04/07/17 04:01 121 29 101/80 94 04/07/17 03:56 118 26 127/76 93 04/07/17 03:51 112 23 103/84 94 04/07/17 03:46 127 24 107/78 94 04/07/17 03:41 127 26 105/75 93 04/07/17 03:36 135 27 106/80 94 Room Air 04/07/17 03:36 133 31 106/80 94 04/07/17 03:31 122 26 96/54 92 Room Air 04/07/17 03:26 128 26 95/73 90 Room Air 04/07/17 03:21 122 28 100/73 94 Room Air 04/07/17 03:16 134 23 102/78 92 Room Air 04/07/17 03:14 129 23 109/76 92 Room Air 04/07/17 03:11 130 39 108/72 92 Room Air 04/07/17 03:06 133 27 103/71 94 Room Air 04/07/17 03:03 133 27 102/63 94 Room Air 04/07/17 02:59 117 28 97/77 92 Room Air 04/07/17 02:57 101/57 04/07/17 02:57 Room Air 04/07/17 02:55 107 32 97/72 93 Room Air 04/07/17 02:53 99/76 04/07/17 02:52 129 27 102/74 93 Room Air 04/07/17 02:48 103/71 04/07/17 02:46 104/68 04/07/17 02:43 139 98/78 93 Room Air 04/07/17 02:41 106/79 04/07/17 02:40 125/72 04/07/17 02:37 138 106/83 04/07/17 02:35 113/83 04/07/17 02:33 149 114/86 95 Room Air 04/07/17 02:32 130 04/07/17 02:30 169 04/07/17 02:27 94 Room Air 04/07/17 02:22 36.7 173 24 124/76 95 Room Air Lab Results: Results Past 24 Hours Test 04/07/17 02:32 04/07/17 09:00 04/07/17 10:11 04/07/17 14:16 Range/Units White Blood Count 14.24 4.8-10.8 K/uL Red Blood Count 5.24 4.7-6.1 M/uL Hemoglobin 15.3 14.0-18.0 g/dL Hematocrit 46.0 42-52 % Mean Corpuscular Volume 87.8 80-100 fL Mean Corpuscular Hemoglobin 29.2 25-34 pg Mean Corpuscular Hemoglobin Concent 33.3 32-36 g/dl Platelet Count 105 130-400 K/uL Mean Platelet Volume 11.1 7.4-10.4 fL Neutrophils (%) (Auto) 80.9 % Lymphocytes (%) (Auto) 9.4 % Monocytes (%) (Auto) 8.8 % Eosinophils (%) (Auto) 0.3 % Basophils (%) (Auto) 0.2 % Neutrophils # (Auto) 11.52 1.4-6.5 K/uL Lymphocytes # (Auto) 1.34 1.2-3.4 K/uL Monocytes # (Auto) 1.26 0.11-0.59 K/uL Eosinophils # (Auto) 0.04 0-0.5 K/uL Basophils # (Auto) 0.03 0-0.2 K/uL RDW Standard Deviation 40.3 36.4-46.3 fL RDW Coefficient of Variation 12.6 11.5-14.5 % Immature Granulocyte % (Auto) 0.4 % Immature Granulocyte # (Auto) 0.05 0.00-0.02 K/uL Prothrombin Time 11.4 9.0-12.0 SECONDS Prothromb Time International Ratio 1.1 0.9-1.1 Activated Partial Thromboplast Time 28.5 46.4 21.0-31.0 SECONDS Partial Thromboplastin Ratio 1.1 1.8 Sodium Level 135 138 136-145 mmol/L Potassium Level 4.6 4.8 3.5-5.1 mmol/L Chloride Level 104 104 98-107 mmol/L Carbon Dioxide Level 24 26 21-32 mmol/L Anion Gap 7.0 7.0 3-11 mmol/L Blood Urea Nitrogen 23 25 7-18 mg/dl Creatinine 1.14 0.90 0.60-1.40 mg/dl Est Creatinine Clear Calc Drug Dose 80.3 101.7 ml/min Estimated GFR () 78.3 104.2 Estimated GFR (Non- 67.6 89.9 BUN/Creatinine Ratio 19.9 27.8 10-20 Random Glucose 127 112 70-99 mg/dl Calcium Level 8.7 8.4 8.5-10.1 mg/dl Magnesium Level 1.8 1.8 1.8-2.4 mg/dl Total Bilirubin 1.1 1.3 0.2-1 mg/dl Aspartate Amino Transf (AST/SGOT) 17 11 15-37 U/L Alanine Aminotransferase (ALT/SGPT) 25 19 12-78 U/L Alkaline Phosphatase 136 115 45-117 U/L Total Creatine Kinase 58 39-308 U/L Creatine Kinase MB < 0.5 0.5-3.6 ng/ml Creatine Kinase MB Ratio 0-3.0 Troponin I 0.147 0.113 0-0.045 ng/ml Pro-B-Type Natriuretic Peptide 3274 0-900 pg/ml Total Protein 7.9 7.1 6.4-8.2 gm/dl Albumin 3.5 3.0 3.4-5.0 gm/dl Globulin 4.4 4.1 2.5-4.0 gm/dl Albumin/Globulin Ratio 0.8 0.7 0.9-2 Thyroid Stimulating Hormone (TSH) < 0.005 0.300-4.500 uIu/ml Chemistry Specimen Hemolysis Influenza Type A Antigen Neg for Influ A NEG Influenza Type B Antigen Neg for Influ B NEG Free Thyroxine 2.46 0.80-1.60 ng/dl Thyroxine (T4) 9.5 4.5-10.9 mcg/dl Free Triiodothyronine 6.32 2.30-4.20 pg/ml Hepatitis C Antibody Screen NEG NEG
--- NOTE | 2017-04-07 13:50 | DIAGNOSTIC IMAGING REPORT ---
CT ANGIOGRAM OF THE CHEST CLINICAL HISTORY: Atypical chest pain. COMPARISON STUDY: Chest x-ray dated 04/07/2017. TECHNIQUE: Following the IV administration of 93 cc of Optiray 320, CT angiogram of the chest was performed from the upper abdomen to the thoracic inlet utilizing the pulmonary embolus protocol. Images are reviewed in the axial, sagittal, and coronal planes. 3-D MIPS images are created and assessed. IV contrast was administered without complication. A dose lowering technique was utilized adhering to the principles of ALARA. The examination is degraded by motion artifact. CT DOSE: 629.34 mGy.cm FINDINGS: Thyroid: Imaged portions of the thyroid gland are normal in size and attenuation. Thoracic aorta: There is atherosclerotic calcification of the thoracic aorta. There is mild ectasia of the ascending thoracic aorta which measures up to 4.3 cm. The remainder of the thoracic aorta is normal in caliber. The arch demonstrates 4-vessel variant anatomy. No dissection is seen. Pulmonary vasculature: The pulmonary trunk is dilated, measuring 4.0 cm in transverse diameter. This suggests pulmonary artery hypertension. There is a saddle pulmonary embolus with extensive bilateral pulmonary emboli. Extensive thrombus is present within the distal left main pulmonary artery extending into the upper and lower lobe branches. Pulmonary blood are also seen within right upper lobe branches. Heart: The heart is enlarged and without pericardial effusion. The aortic valve leaflets and coronary arteries are densely calcified. Lungs and pleural spaces: Evaluation of the lung parenchyma is degraded by motion artifact. There is a trace left pleural effusion. Consolidative change is seen throughout the left lower lobe. The right lung is grossly clear. The trachea and central airways are patent Mediastinum: There is no mediastinal lymphadenopathy. Katarzyna: Clear. Axillae: There is no axillary lymphadenopathy. Upper abdomen: Partially visualized upper abdominal viscera is within normal limits. Skeletal structures: The skeletal structures appear osteopenic. Degenerative change is seen throughout the thoracic spine. No lytic or blastic bony lesions are seen. IMPRESSION: 1. Saddle pulmonary embolus with extensive bilateral pulmonary emboli as above. 2. Consolidative change is seen throughout the left lower lobe. Given the extensive pulmonary embolus in this distribution this likely represents a developing pulmonary infarct. Correlate clinically for evidence of superimposed pneumonia. 3. Trace left pleural effusion. 4. Cardiomegaly. 5. There is ectasia of the ascending thoracic aorta which measures up to 4.3 cm in diameter. 6. Additional findings as above. Electronically signed by: Benjamin Richey M.D. 04/07/2017 1:48 PM Dictated Date/Time: 04/07/2017 1:42 PM
[2017-04-07] MEDS ORDERED: METOPROLOL SUCC 50MG EXT REL TAB PO SCH (14:00)
--- NOTE | 2017-04-07 14:56 | Progress Note ---
Progress Note Date of Service Apr 07, 2017. Progress Note ATTENDING ADDENDUM ': CTA of chest for PE shows ; Saddle emboli with extensive bilateral pulmonary emboli with evidence of left lower lobe pulmonary infraction Pulmonary vasculature: The pulmonary trunk is dilated, measuring 4.0 cm in transverse diameter. This suggests pulmonary artery hypertension. There is a saddle pulmonary embolus with extensive bilateral pulmonary emboli. Extensive thrombus is present within the distal left main pulmonary artery extending into the upper and lower lobe branches. Pulmonary blood are also seen within right upper lobe branches. 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
--- NOTE | 2017-04-07 15:23 | Progress Note ---
Progress Note Date of Service Apr 07, 2017. Progress Note ATTENDING NOTE : spoke with [facility] Oyster Unloader Dr Cassandra Mcrae -accepted the pt in her service in ICU upon transfer pt will be taken to IR department for catheter guided thrombectomy pt will be life flighted to [facility] patient , his and Son updated
[2017-04-07] MEDS ORDERED: OXYC-57 PO (15:26)
[2017-04-07] MEDS ORDERED: TPRSR50 PO (15:26)
[2017-04-07] MEDS ORDERED: TPZ5 PO (15:26)
[2017-04-07] MEDS ORDERED: MRPIS2 IV (15:32)
[2017-04-07] MEDS ORDERED: NORMAL SALINE IV (15:32)
[2017-04-07] MEDS ORDERED: heparin IV (15:32)
--- NOTE | 2017-04-07 15:34 | Discharge Instructions ---
Discharge Instructions Date of Service Apr 07, 2017. Admission Reason for Admission: Atrial Fib W/ Rvr, Elevated Troponin Discharge Discharge Diagnosis / Problem: SADDLE PULMONARY EMBOLI WITH EXTENSIVE BILATERAL PE Discharge Goals Goal(s): Decrease discomfort, Diagnostic testing, Therapeutic intervention Activity Recommendations Activity Limitations: as noted below ( TOLERATED ) . Instructions / Follow-Up Instructions / Follow-Up PT BEING TRANSFERRED/LIFE FLIGHTED TO [facility] -ICU ACCEPTING AIR[employer]IN CLE[employer]ER DR SHAHEEN HUGGINS Current Hospital Diet Patient's current hospital diet: AHA Diet (Heart Healthy) Discharge Diet Recommended Diet: AHA Diet (Heart Healthy) Pending Studies Studies pending at discharge: no Medical Emergencies . Who to Call and When: Medical Emergencies: If at any time you feel your situation is an emergency, please call 911 immediately. . Non-Emergent Contact Non-Emergency issues call your: Primary Care Provider . . "Provider Documentation" section prepared by Celine Mckeon. . VTE Core Measure Inpt VTE Proph given/why not?: Other Anticoagulation (IV HEPARIN GTT )
[2017-04-07] MEDS ORDERED: MoRPHine SULFATE 2 MG/ML CARP IV STA (15:46)
--- NOTE | 2017-04-07 15:48 | Discharge Summary ---
Discharge Summary Date of Service Apr 07, 2017. Discharge Summary Admission Date: Apr 07, 2017 at 04:13 Discharge Date: Apr 07, 2017 Discharge Disposition: Acute care facility ([facility] [place] ) Principal Diagnosis: SADDLE PULMONARY EMBOLI WITH EXTENSIVE BILATERAL PE Procedures: CT CHEST WITH CONTRAST ECHO LOWER EXTREMITY DOPPLER : CHEST XRAY : Consultations: [facility] GOLDEN Medication Reconciliation New Medications: [heparin ] () 34 ML IV UD 04/07/17 : 11 : 33 am heparin IV RATE 34 ml/hr Heparin bolus 3000 U PTT 46.5 REPEAT PTT IN 6 HRS [Normal Saline ] () 80 ML IV IV SALINE 80 ML/HR Methimazole (Methimazole) 5 Mg Tab 20 MG PO DAILY for 30 Days, #120 TAB Metoprolol Succinate (Metoprolol Succinate ER) 50 Mg Tabcr 50 MG PO TID for 30 Days Morphine Sulfate (Morphine Sulfate) 2 Mg/Ml Inj 1 MG IV Q6 PRN for Pain for 5 Days Oxycodone/Acetaminophen 5MG/325MG (Percocet 5MG/325MG) Tab 1 TAB PO Q4H PRN for Pain, #30 TAB PAIN Discontinued Medications: Amoxicillin (Amoxil) 500 Mg Cap 500 MG PO BID for 10 Days, #20 CAP Hydrocodone-Acetaminophen (Hydrocodone/Acetaminophen) 1 Tab Tab 1 TAB PO UD PRN for Pain hydrocodone/acetaminophen 7.5mg/750mg Methimazole (Methimazole) 10 Mg Tab 10 MG PO DAILY Metoprolol Succ (Toprol Xl) (Toprol-Xl ) 100 Mg Tabcr 100 MG PO DAILY, TAB Admission Information HPI (per Admitting provider): This is a 66 year old M with PMH of Atrial Fibrillation and Hyperthyroidism on methimazole who presents to the emergency room for abdominal pain and found to be in atrial fibrillation with RVR. In the ED, the initial EKG documenting heart rate of 161 bpm atrial fibrillation with RVR. Patient denies discomfort of the chest however also found to have elevated troponin of 0.147. In the ED patient received aspirin 325 mg, diltiazem 5 mg IV, and metoprolol tartrate IV. As per ED physician and patient's nurse, after these measures were taken, the blood pressure decreased (from systolic of 120s to systolic of low 100s). ED physician also ordered IV heparin to be started for anticoagulation. When see and examined by hospitalist, patient's heart rate around 115 to 120 beats per minute, still in atrial fibrillation with RVR, and blood pressure 103/ 84, saturating 94% on room air. Patient not in acute distress. Patient also had bilateral lower extremity edema for which patient reports is chronic and is not on diuretics. Patient reports that he has been having upper respiratory symptoms for about a week. He was seen at the primary care doctor's office on 04/06/17 for which he was prescribed augmentin for presumed sinusitis. Patient also reported subjective fevers at home Patient denies chest pain but has abdominal pain like muscle spasms Physical Exam (per Admitting): General Appearance: no apparent distress Head: normocephalic, atraumatic Eyes: normal inspection, EOMI, sclerae normal ENT: normal ENT inspection, hearing grossly normal, pharynx normal Neck: supple, no JVD, no carotid bruits, trachea midline Respiratory/Chest: chest non-tender, lungs clear, normal breath sounds, no respiratory distress, no accessory muscle use Cardiovascular: no JVD, + tachycardia Abdomen/GI: normal bowel sounds, non tender, soft, no organomegaly Back: normal inspection, normal range of motion Extremities/Musculoskelatal: normal capillary refill, + pedal edema, + pertinent finding (bilateral lower extremity edema) Neurologic/Psych: alert, oriented x 3 Skin: normal color, warm/dry, no rash Hospital Course AFIB RVR presented with rapid Afib RVR HR in 170's given IV Cardizem, IV Lopressor in ER HR improved to 115 remains in Afib started on IV Heparin appreciate input form Cardiology -Lopressor dose increased to 50 mg Q 8hrs ( was on 100 mg daily ) ECHO shows : moderated to severe Aortic stenosis, bicuspid aortic valve cont tele monitoring Per Cardiology : if pt remains in persisted afib RVR -plan for KRYS cardioversion after being on therapeutic anticoagulation for 48 hrs RT LOWER EXTREMITY DVT Lower ext Doppler shows occlusive DVT on rt lower extremity CTA of chest for PE shows ; Saddle emboli with extensive bilateral pulmonary emboli with evidence of left lower lobe pulmonary infraction LEFT SIDED CHEST WALL PAIN : complains of sharp pain on left chest wall , reproducible , very tender to touch worse with taking deep breath ordered for IV morphine PRN CT Chest with contrast shows saddle emboli with extensive bilateral pulmonary embolism , with left lower lobe pulmonary infract HYPERTHYROIDISM : has not taken methimazole for past few weeks ( pt says he ran out of them ) presents with rapid Afib rvr TSH < 0.0005 with elevated Free T3 /t4 level was prescribed to take Tapazole 7.5 mg daily , pt is unsure of the dose , mentions he was possibly taking 10 mg daily till he ran out of the med increased Tapazole dose to 20 mg daily Called [facility] discussed the case recommends to continue Tapazole 20 mg daily Beta titus for rapid afib it will take few weeks before Free T4 level normalizes out pt TSH /Free T4 check in 3 -4 weeks to monitor response and adjusting meds DRY NON PRODUCTIVE COUGH /URI : Cxray shows no infiltrate afebrile has mild leukocytosis WBC 14 K recently prescribed Augmentin as out pt started on Amoxicillin on admission no cough noted since admission DVT PROPHYLAXIS IV heparin FULL CODE ATTENDING ADDENDUM ': CTA of chest for PE shows ; Saddle emboli with extensive bilateral pulmonary emboli with evidence of left lower lobe pulmonary infraction Pulmonary vasculature: The pulmonary trunk is dilated, measuring 4.0 cm in transverse diameter. This suggests pulmonary artery hypertension. There is a saddle pulmonary embolus with extensive bilateral pulmonary emboli. Extensive thrombus is present within the distal left main pulmonary artery extending into the upper and lower lobe branches. Pulmonary blood are also seen within right upper lobe branches. CT finding discussed with Cardiology Dr Golden and client insights consultant bleach tester pt has significant clot burden elevated BNP shows evidence of rt heart strain persisted Afib /RVR possibly due to above will need Tertiary care transfer for IR guided thrombectomy CT chest finding updated to Patient and OK to transfer to [facility] for specialized care spoke with [facility] Answerer Dr Shaheen Huggins -accepted the pt in her service in ICU upon transfer pt will be taken to IR department for catheter guided thrombectomy pt will be life flighted to [facility] patient , his and Son updated PT IS LIFE FLIGHTED TO [facility] ACCEPTING PHYSICIAN DR SHAHEEN HUGGINS Total time spent on discharge = 45 MINS This includes examination of the patient, discharge planning, medication reconciliation, and communication with other providers. Discharge Instructions Discharge Instructions Date of Service Apr 07, 2017. Admission Reason for Admission: Atrial Fib W/ Rvr, Elevated Troponin Discharge Discharge Diagnosis / Problem: SADDLE PULMONARY EMBOLI WITH EXTENSIVE BILATERAL PE Discharge Goals Goal(s): Decrease discomfort, Diagnostic testing, Therapeutic intervention Activity Recommendations Activity Limitations: as noted below ( TOLERATED ) . Instructions / Follow-Up Instructions / Follow-Up PT BEING TRANSFERRED/LIFE FLIGHTED TO [facility] -ICU ACCEPTING LAN/WAN ENGINEER DR SHAHEEN HUGGINS Current Hospital Diet Patient's current hospital diet: AHA Diet (Heart Healthy) Discharge Diet Recommended Diet: AHA Diet (Heart Healthy) Pending Studies Studies pending at discharge: no Medical Emergencies . Who to Call and When: Medical Emergencies: If at any time you feel your situation is an emergency, please call 911 immediately. . Non-Emergent Contact Non-Emergency issues call your: Primary Care Provider . . "Provider Documentation" section prepared by Celine Mckeon. . VTE Core Measure Inpt VTE Proph given/why not?: Other Anticoagulation (IV HEPARIN GTT ) Additional Copies To Arron Golden M.D.
[2017-04-07] MEDS ORDERED: NURSING VERBAL MED ORDER ONE (16:15)
[2017-04-07] MEDS ORDERED: ONDANSETRON INJ 2 MG/ML 2 ML VIAL ONE (16:20)
[2017-04-07 16:25] LABS: PTT PATIENT 57.4 SECONDS (21.0-31.0)
[2017-04-07] MEDS ORDERED: ONDANSETRON INJ 2 MG/ML 2 ML VIAL IV ONE (16:30)
[2017-04-07 18:10] LABS: PTT PATIENT 45.4 SECONDS (21.0-31.0)
== END 2017-04-07 20:00 | disposition short-term general hospital (02) | DRG 176 ==
LOC: C.EDB 02:21 → C.2T 04:13 → ENRESERV 04:17 → EDBEDREQSVC 14:31 → CANBEDREQ 14:36
PROVIDERS: ADMIT Hospitalist; ATTEND Hospitalist
DX: I26.92 Saddle embolus of pulmonary artery without acute cor pulmonale (principal); I82.411 Acute embolism and thrombosis of right femoral vein; I82.431 Acute embolism and thrombosis of right popliteal vein; I82.491 Acute embolism and thrombosis of other specified deep vein of right lower extremity; I48.1 Persistent atrial fibrillation; Q23.1 Congenital insufficiency of aortic valve; I51.9 Heart disease, unspecified; E05.90 Thyrotoxicosis, unspecified without thyrotoxic crisis or storm; R07.89 Other chest pain; R60.0 Localized edema; J06.9 Acute upper respiratory infection, unspecified; R05 Cough; T38.2X6A Underdosing of antithyroid drugs, initial encounter; Z91.138 Patient's unintentional underdosing of medication regimen for other reason; Z23 Encounter for immunization; Z87.891 Personal history of nicotine dependence; Z79.899 Other long term (current) drug therapy